=== PATIENT | female | born 1945 | race Caucasian/White ===

== ENCOUNTER → 2017-09-05 | Outpatient (CLI) | payer MEDICARE | LOC: M WHC 14:02 | DX: Z12.31 Encounter for screening mammogram for malignant neoplasm of breast (principal) | CPT/HCPCS: 77067 ==

== ENCOUNTER → 2018-09-06 | Outpatient (CLI) | payer MEDICARE ==
[~2018-09-06] MED LIST: CENTCHW3 PO; EZET10TA PO; HYDR25TAB PO; LEVO100T5 PO; PANT40TA3 PO; TAMO20TA8 PO; VENL37TA PO
--- NOTE | 2018-09-06 11:45 | REPMRS ---
Patient History The patient states she had a clinical breast exam in 08/2018. Patient is postmenopausal and has history of high-risk lesion on a previous biopsy at age 67. Family history of breast cancer at age 40 in maternal cousin, breast cancer at age 40 in maternal cousin. High risk lumpectomy of the left breast, April 18, 2013. High risk lumpectomy of the right breast, September 28, 2011. Took tamoxifen for 5 years. Digital Woman Screen Mammo: September 06, 2018 - Exam #: [id number] Bilateral CC and MLO view(s) were taken. Technologist: Bryanna Monae, Technologist Prior study comparison: September 05, 2017, digital woman screen mammo performed at [facility]. March 03, 2016, bilateral digital mammo screening bilat, performed at [facility]. January 20, 2015, digital mammo diagnostic bilateral, performed at [facility]. FINDINGS: There are scattered fibroglandular densities. There are stable nodular densities in the lateral aspect of each breast, unchanged. There has been no change in the appearance of the mammogram from the prior studies. There is a mild amount of scattered fibroglandular density which is fairly symmetric. There is no interval development of dominant mass, architectural distortion, or clustered microcalcification suggestive of malignancy. 3-D tomosynthesis shows no additional findings. Assessment: BI-RADS/ACR category 2 mammogram. Benign finding(s). Recommendation Routine screening mammogram of both breasts in 1 year (for women over age 40). This patient's Lifetime Breast Cancer RIsk is estimated at 4.7 %. This mammogram was interpreted with the aid of an FDA-approved computer-aided dectection system. Electronically Signed By: Guille Nguyen MD 09/06/18 [id number]
== END ==
LOC: M WHC 09:56
PROVIDERS: ATTEND Nurse Practitioner Family
DX: Z12.31 Encounter for screening mammogram for malignant neoplasm of breast (principal); Z78.0 Asymptomatic menopausal state; Z92.29 Personal history of other drug therapy

== ENCOUNTER → 2019-05-30 | Outpatient (REF) | payer MEDICARE ==
[~2019-05-30] MED LIST changes: -EZET10TA PO; +EZET10TA21 PO
== END ==
LOC: M LAB REF 17:03
PROVIDERS: ATTEND Orthopaedic Surgery Hand Surgery
DX: D48.1 Neoplasm of uncertain behavior of connective and other soft tissue (principal)

== ENCOUNTER → 2019-09-09 | Outpatient (CLI) | payer MEDICARE ==
--- NOTE | 2019-09-09 12:51 | REPMRS ---
Patient History The patient states she had a clinical breast exam in August 2019.Family history of breast cancer at age 40 in maternal cousin, breast cancer at age 40 in maternal cousin. High risk lumpectomy of the left breast, April 18, 2013. High risk lumpectomy of the right breast, September 28, 2011. Took tamoxifen for 5 years. Digital Woman Screen Mammo: September 09, 2019 - Exam #: [id number] Bilateral CC and MLO view(s) were taken. Technologist: Omayra Ness, Technologist Prior study comparison: September 06, 2018, bilateral digital woman screen mammo performed at [facility] [place]. September 05, 2017, digital woman screen mammo performed at [facility]. March 03, 2016, bilateral digital mammo screening bilat, performed at [facility]. FINDINGS: There are scattered fibroglandular densities. There is a moderate amount of residual fibroglandular tissue which is fairly symmetric. There is no interval development of dominant mass, architectural distortion, or grouped microcalcification typical of malignancy. There has been no change in the appearance of the mammogram from the prior studies. 3-D tomosynthesis shows no additional findings. Assessment: BI-RADS/ACR category 1 mammogram. Negative Mammogram. Recommendation Routine screening mammogram of both breasts in 1 year (for women over age 40). This patient's Lifetime Breast Cancer RIsk is estimated at 4.4 %. This mammogram was interpreted with the aid of an FDA-approved computer-aided dectection system. Electronically Signed By: Guille Nguyen MD 09/09/19 [id number]
== END ==
LOC: M WHC 10:15
PROVIDERS: ATTEND Nurse Practitioner Family
DX: Z12.31 Encounter for screening mammogram for malignant neoplasm of breast (principal); Z92.29 Personal history of other drug therapy

== ENCOUNTER → 2020-09-10 | Outpatient (CLI) | payer MEDICARE ==
[~2020-09-10] MED LIST changes: +PANT40TA29 PO; -PANT40TA3 PO
--- NOTE | 2020-09-10 12:16 | REPMRS ---
Patient History The patient states she had a clinical breast exam in August 2020. Family history of breast cancer at age 40 in maternal cousin, breast cancer at age 40 in maternal cousin. High risk lumpectomy of the left breast, April 18, 2013. High risk lumpectomy of the right breast, September 28, 2011. Took tamoxifen for 5 years. 3D TOMOSYNTHESIS WAS PERFORMED. The [facility] lifetime risk for breast cancer is 4.1%. Volpara breast density b. Digital Woman Screen Mammo: September 10, 2020 - Exam #: [id number] Bilateral CC and MLO view(s) were taken. Technologist: Charley Panchal, Technologist Prior study comparison: September 09, 2019, bilateral digital woman screen mammo performed at [facility]. September 06, 2018, bilateral digital woman screen mammo performed at [facility]. FINDINGS: The breast tissue is heterogeneously dense. This may lower the sensitivity of mammography. There has been no change in the appearance of the mammogram from the prior studies. There is a moderate amount of residual fibroglandular tissue which is fairly symmetric. There is no interval development of dominant mass, areas of architectural distortion, or clustered microcalcification typical of malignancy. Assessment: BI-RADS/ACR category 1 mammogram. Negative Mammogram. Recommendation Routine screening mammogram in 1 year (for women over age 40). This mammogram was interpreted with the aid of an FDA-approved computer-aided dectection system. Electronically Signed By: Zan Mccullough MD 09/10/20 [id number]
== END ==
LOC: M WHC 11:08
PROVIDERS: ATTEND Nurse Practitioner Family
DX: Z12.31 Encounter for screening mammogram for malignant neoplasm of breast (principal); Z86.018 Personal history of other benign neoplasm; Z92.29 Personal history of other drug therapy

== ENCOUNTER → 2021-05-14 | Outpatient (CLI) | payer MEDICARE ==
[~2021-05-14] MED LIST changes: +CLAR10CA3 PO; +EUTH125T PO; +HYDR-3490 PO; -HYDR25TAB PO
== END ==
LOC: M LABSMTC 09:02
PROVIDERS: ATTEND Anesthesiology
DX: Z01.818 Encounter for other preprocedural examination (principal); Z11.52 Encounter for screening for COVID-19

== ENCOUNTER 2021-05-19 10:29 | Day surgery (SDC) | payer MEDICARE ==
[~2021-05-19] VITALS: Ht 154.9 cm; Wt 88.5 kg
[~2021-05-19 10:29] MED LIST changes: +NS 1,000 ML IV ONE
[2021-05-19] MEDS ORDERED: propofoL 200 MG/20 ML VIAL As Ordered ONE (11:57)
[2021-05-19] MEDS ORDERED: LIDOCAINE 2% 100MG/5ML SDV (FOR ANES.) As Ordered ONE (11:57)
[2021-05-19] MEDS ORDERED: fentaNYL 100 MCG/2 ML INJECTION (J3010) As Ordered ONE (11:58)
--- NOTE | 2021-05-19 13:01 | ROOR ---
Patient Name: Miley Chapman Procedure Date: 05/19/2021 12:39 PM Date of : 1945 Age: 75 Room: [facility] Gender: Female Note Status: Finalized Procedure: Upper Endoscopy + Biopsies Indications: Heartburn, Failure to respond to medical treatment Providers: Trace Alicea MD Referring MD: Ramiro Haddad MD Requesting Provider: Medicines: Monitored Anesthesia Care Complications: No immediate complications. Procedure: Pre-Anesthesia Assessment: - The heart rate, respiratory rate, oxygen saturations, blood pressure, adequacy of pulmonary ventilation, and response to care were monitored throughout the procedure. The Endoscope was introduced through the mouth, and advanced to the second part of duodenum. The upper GI endoscopy was accomplished without difficulty. The patient tolerated the procedure well. Findings: The Z-line was regular and was found 30 cm from the incisors. Multiple biopsies were obtained with cold forceps for evaluation to rule out Hart's Esophagus randomly at the gastroesophageal junction. A large hiatal hernia was present. No other significant abnormalities were identified in a careful examination of the stomach. The exam of the duodenum was otherwise normal. Impression: - Z-line regular, 30 cm from the incisors. - Large hiatal hernia. - Multiple biopsies were obtained at the gastroesophageal junction. - The examination was otherwise normal. Recommendation: - Patient has a contact number available for emergencies. The signs and symptoms of potential delayed complications were discussed with the patient. Return to normal activities tomorrow. Written discharge instructions were provided to the patient. - High fiber diet. - Discharge patient to home. - Follow an antireflux regimen. - Continue present medications. - Await pathology results. - Telephone GI clinic for pathology results in 1 week. - Return to referring physician. - The findings and recommendations were discussed with the patient. Procedure Code(s): --- Professional --- 18009, Esophagogastroduodenoscopy, flexible, transoral; with biopsy, single or multiple Diagnosis Code(s): --- Professional --- K44.9, Diaphragmatic hernia without obstruction or gangrene R12, Heartburn CPT copyright 2019 [employer]. All rights reserved. The codes documented in this report are preliminary and upon gate mortiser operator review may be revised to meet current compliance requirements. Trace Alicea MD Trace Alicea MD 05/19/2021 1:00:44 PM Electronically signed by Trace Alicea MD Number of Addenda: 0 Note Initiated On: 05/19/2021 12:39 PM Estimated Blood Loss: Estimated blood loss: none.
[2021-05-19 13:44] VITALS: BP 175/84
== END 2021-05-19 13:45 | disposition home or self-care (01) ==
LOC: M OPP 10:29
PROVIDERS: ATTEND Internal Medicine Gastroenterology
DX: R12 Heartburn (principal); K22.10 Ulcer of esophagus without bleeding; K44.9 Diaphragmatic hernia without obstruction or gangrene; I10 Essential (primary) hypertension; E78.5 Hyperlipidemia, unspecified; E03.9 Hypothyroidism, unspecified; F41.9 Anxiety disorder, unspecified; F32.9 Major depressive disorder, single episode, unspecified; Z88.0 Allergy status to penicillin; Z88.8 Allergy status to other drugs, medicaments and biological substances; Z79.899 Other long term (current) drug therapy
CPT/HCPCS: 43239; 88305; J3010

== ENCOUNTER → 2021-11-04 | Outpatient (CLI) | payer MEDICARE ==
[~2021-11-04] MED LIST changes: -NS 1,000 ML IV ONE
== END ==
LOC: M WHC 11:16
PROVIDERS: ATTEND Family Medicine
DX: Z12.31 Encounter for screening mammogram for malignant neoplasm of breast (principal)

== ENCOUNTER → 2021-11-22 | Outpatient (CLI) | payer MEDICARE | LOC: M WHC 09:55 | PROVIDERS: ATTEND Family Medicine | DX: R92.8 Other abnormal and inconclusive findings on diagnostic imaging of breast (principal); N60.01 Solitary cyst of right breast | CPT/HCPCS: 76642; 77065; G0279 ==

== ENCOUNTER → 2022-01-06 | Outpatient (CLI) | payer MEDICARE | LOC: M LABSMTC 11:35 | PROVIDERS: ATTEND Anesthesiology | DX: Z01.818 Encounter for other preprocedural examination (principal); Z11.52 Encounter for screening for COVID-19 ==

== ENCOUNTER → 2022-01-07 | Outpatient (CLI) | payer MEDICARE ==
[~2022-01-07] MED LIST changes: +ULTR50TA8 PO
== END ==
LOC: M WUC 11:42
PROVIDERS: ATTEND Family Medicine
DX: Z01.818 Encounter for other preprocedural examination (principal)

== ENCOUNTER 2022-01-11 08:26 | Day surgery (SDC) | payer MEDICARE ==
[~2022-01-11] VITALS: Ht 157.5 cm; Wt 89.7 kg
[~2022-01-11 08:26] MED LIST changes: +CLINDAMYCIN 900 MG in IV 1 EA IV ONE; +HEPARIN SOD (PORCINE) 5000UNITS/ML 1ML VIAL/SYRINGE SQ ONE; +LIDOCAINE 2% 100MG/5ML SDV (FOR ANES.) As Ordered ONE; +LR 1,000 ML IV ONE; +MIDAZOLAM INJ 2MG/2ML VIAL (J2250 PER 1MG) As Ordered ONE; +ONDANSETRON 4MG/2ML VIAL As Ordered ONE; -ULTR50TA8 PO; +dexameTHASONE 4 MG/ML 1ML VIAL (J1100 PER 1MG) As Ordered ONE; +fentaNYL 100 MCG/2 ML INJECTION As Ordered ONE; +propofoL 200 MG/20 ML VIAL As Ordered ONE
[2022-01-11] MEDS ORDERED: LIDOCAINE 1% SDV 30ML VIAL As Ordered ONE (09:21)
[2022-01-11] MEDS ORDERED: BUPIVACAINE HCL 0.25% 30ML VIAL As Ordered ONE (09:21)
[2022-01-11] MEDS ORDERED: SCOPOLAMINE 1MG TRANSDERMAL PATCH TOP ONE (09:50)
[2022-01-11] MEDS ORDERED: SCOPOLAMINE 1MG TRANSDERMAL PATCH As Ordered ONE (10:05)
[2022-01-11] MEDS ORDERED: ePHEDrine SULFATE 25 MG/5 ML(5MG/ML) SYRINGE As Ordered ONE (10:17)
[2022-01-11] MEDS ORDERED: fentaNYL 100 MCG/2 ML INJECTION As Ordered ONE (11:18)
[2022-01-11] MEDS ORDERED: ULTR50TA8 PO (12:41)
[2022-01-11] MEDS ORDERED: LR 1,000 ML IV SCH (13:10)
[2022-01-11] MEDS ORDERED: ONDANSETRON 4MG/2ML VIAL IV PRN (13:10)
[2022-01-11] MEDS ORDERED: oxyCODONE 5MG TAB PO PRN (13:10)
[2022-01-11] MEDS ORDERED: fentaNYL 100 MCG/2 ML INJECTION IV PRN (13:10)
[2022-01-11 13:45] VITALS: BP 124/72
== END 2022-01-11 14:25 | disposition home or self-care (01) ==
LOC: M SDC 08:26
PROVIDERS: ATTEND Surgery
DX: D24.1 Benign neoplasm of right breast (principal); N60.91 Unspecified benign mammary dysplasia of right breast; N60.11 Diffuse cystic mastopathy of right breast; Z80.3 Family history of malignant neoplasm of breast; I10 Essential (primary) hypertension; E78.5 Hyperlipidemia, unspecified; R91.1 Solitary pulmonary nodule; K21.9 Gastro-esophageal reflux disease without esophagitis; E03.9 Hypothyroidism, unspecified; K44.9 Diaphragmatic hernia without obstruction or gangrene; K57.92 Diverticulitis of intestine, part unspecified, without perforation or abscess without bleeding; M47.9 Spondylosis, unspecified; N39.3 Stress incontinence (female) (male); F41.1 Generalized anxiety disorder; J30.9 Allergic rhinitis, unspecified; K59.09 Other constipation; M15.9 Polyosteoarthritis, unspecified; Z79.899 Other long term (current) drug therapy; Z79.890 Hormone replacement therapy; Z88.0 Allergy status to penicillin; Z88.8 Allergy status to other drugs, medicaments and biological substances
CPT/HCPCS: 19101; 36415; 76942; 86850; 86900; 86901; 88307; 88341; 88342; J1100; J1644; J2250; J2405; J3010

== ENCOUNTER → 2022-06-28 | Outpatient (REF) | payer MEDICARE ==
[~2022-06-28] MED LIST changes: -CLINDAMYCIN 900 MG in IV 1 EA IV ONE; -HEPARIN SOD (PORCINE) 5000UNITS/ML 1ML VIAL/SYRINGE SQ ONE; -LIDOCAINE 2% 100MG/5ML SDV (FOR ANES.) As Ordered ONE; -LR 1,000 ML IV ONE; -MIDAZOLAM INJ 2MG/2ML VIAL (J2250 PER 1MG) As Ordered ONE; -ONDANSETRON 4MG/2ML VIAL As Ordered ONE; +ULTR50TA8 PO; -dexameTHASONE 4 MG/ML 1ML VIAL (J1100 PER 1MG) As Ordered ONE; -fentaNYL 100 MCG/2 ML INJECTION As Ordered ONE; -propofoL 200 MG/20 ML VIAL As Ordered ONE
== END ==
LOC: M LAB REF 14:02
PROVIDERS: ATTEND Family Medicine
DX: E83.52 Hypercalcemia (principal)

== ENCOUNTER → 2022-11-07 | Outpatient (CLI) | payer MEDICARE | LOC: M WHC 10:22 | PROVIDERS: ATTEND Surgery | DX: Z12.31 Encounter for screening mammogram for malignant neoplasm of breast (principal); N60.91 Unspecified benign mammary dysplasia of right breast ==

== ENCOUNTER → 2022-12-23 | Outpatient (REF) | payer MEDICARE | LOC: M LAB REF 12:28 | PROVIDERS: ATTEND Family Medicine | DX: E83.52 Hypercalcemia (principal) ==

== ENCOUNTER → 2023-05-03 | Outpatient (REF) | payer MEDICARE | LOC: M LAB REF 16:33 | PROVIDERS: ATTEND Family Medicine | DX: E83.52 Hypercalcemia (principal) ==

== ENCOUNTER → 2023-08-31 | Outpatient (REF) | payer MEDICARE ==
[2023-08-31 13:47] LABS: IONIZED CALCIUM 5.3 MG/DL (4.5-5.3)
[2023-08-31 14:15] LABS: PTH INTACT 163.9 PG/ML (18.5-88.0)
== END ==
LOC: M LAB REF 13:23
PROVIDERS: ATTEND Family Medicine
DX: E83.52 Hypercalcemia (principal)

== ENCOUNTER → 2023-09-28 | Outpatient (CLI) | payer MEDICARE ==
[2023-09-28 17:49] LABS: ALBUMIN 3.6 G/DL (3.2-5.2); ALKALINE PHOSPHATASE 91 U/L (46-116); ALT/SGPT 22 U/L (7.0-40); AST/SGOT 13 U/L (<34); BILIRUBIN,TOTAL 0.7 MG/DL (0.3-1.2); BLOOD UREA NITROGEN 12 MG/DL (9-23); CALCIUM LEVEL 10.4 MG/DL (8.3-10.6); CARBON DIOXIDE LEVEL 28 MMOL/L (20-31); CHLORIDE LEVEL 107 MMOL/L (98-107); CREATININE FOR GFR 0.74 MG/DL (0.55-1.30); GLOMERULAR FILTRATION RATE > 60.0 (>39); GLUCOSE, FASTING 104 MG/DL (74-106); POTASSIUM SERUM 3.6 MMOL/L (3.5-5.1); PTH INTACT 165.9 PG/ML (18.5-88.0); SODIUM LEVEL 138 MMOL/L (136-145); TOTAL PROTEIN 6.6 G/DL (5.7-8.2)
[2023-09-28 17:50] LABS: THYROID STIMULATING HORMONE 0.205 uIU/ML (0.55-4.78); THYROXINE (T4) 15.4 UG/DL (4.5-10.9)
[2023-09-28 17:51] LABS: TOTAL 25(OH) VITAMIN D 37.4 NG/ML (20.0-100.0)
[2023-09-28 17:54] LABS: FREE THYROXINE INDEX 7.9 % (1.3-4.8); T UPTAKE 51.2 % (22.5-37.0)
== END ==
LOC: M PLALAB 11:58
PROVIDERS: ATTEND Orthopaedic Surgery
DX: M85.811 Other specified disorders of bone density and structure, right shoulder (principal)

== ENCOUNTER → 2023-10-13 | Outpatient (CLI) | payer MEDICARE | LOC: M WHC 09:33 | PROVIDERS: ATTEND Orthopaedic Surgery | DX: M85.811 Other specified disorders of bone density and structure, right shoulder (principal); M85.851 Other specified disorders of bone density and structure, right thigh; M85.852 Other specified disorders of bone density and structure, left thigh ==

== ENCOUNTER → 2023-11-09 | Outpatient (CLI) | payer MEDICARE | LOC: M WHC 10:18 | PROVIDERS: ATTEND Nurse Practitioner Women's Health | DX: Z12.31 Encounter for screening mammogram for malignant neoplasm of breast (principal) ==

== ENCOUNTER → 2023-11-20 | Outpatient (REF) | payer MEDICARE | LOC: M LAB REF 11:19 | PROVIDERS: ATTEND Family Medicine | DX: E83.52 Hypercalcemia (principal) ==

== ENCOUNTER → 2024-02-13 | Outpatient (REF) | payer MEDICARE | LOC: M LAB REF 11:18 | PROVIDERS: ATTEND Family Medicine | DX: E83.52 Hypercalcemia (principal) ==

== ENCOUNTER 2024-03-18 16:03 | Inpatient (IN) | payer MEDICARE ==
[~2024-03-18] VITALS: Ht 154.9 cm; Wt 90.7 kg
[2024-03-18 17:26] LABS: BASO % 0.1 % (0.0-1.0); EOS % 0.2 % (0.0-3.0); HEMATOCRIT 41.7 % (36.0-47.0); HEMOGLOBIN 14.2 g/dl (12.0-15.5); LYMPH # 1.5 10^3/uL (1.5-5.0); LYMPH % 14.9 % (24.0-44.0); MEAN CORPUSCULAR HEMOGLOBIN 29.8 pg (27.0-33.0); MEAN CORPUSCULAR HGB CONC 34.1 g/dl (32.0-36.5); MEAN CORPUSCULAR VOLUME 87.4 fl (80.0-96.0); MONO # 0.7 10^3/uL (0.0-0.8); MONO % 6.7 % (2.0-8.0); NEUTROPHILS # 8.1 10^3/uL (1.5-8.5); NEUTROPHILS % 77.7 % (36.0-66.0); PLATELET COUNT, AUTOMATED 278 10^3/uL (150-450); RED BLOOD COUNT 4.77 10^6/uL (4.00-5.40); WHITE BLOOD COUNT 10.4 10^3/uL (4.0-10.0)
[2024-03-18 17:39] LABS: LIPASE 45 U/L (12-53)
[2024-03-18 17:41] LABS: ALKALINE PHOSPHATASE 102 U/L (46-116); ALT/SGPT 24 U/L (7.0-40); AST/SGOT 14 U/L (<34); BILIRUBIN,DIRECT 0.3 MG/DL (<0.4); BILIRUBIN,TOTAL 1.1 MG/DL (0.3-1.2); BLOOD UREA NITROGEN 11 MG/DL (9-23); CALCIUM LEVEL 11.1 MG/DL (8.3-10.6); CARBON DIOXIDE LEVEL 26 MMOL/L (20-31); CHLORIDE LEVEL 99 MMOL/L (98-107); CREATININE FOR GFR 0.64 MG/DL (0.55-1.30); GLOMERULAR FILTRATION RATE > 60.0 (>39); GLUCOSE, FASTING 111 MG/DL (74-106); POTASSIUM SERUM 3.3 MMOL/L (3.5-5.1); SODIUM LEVEL 134 MMOL/L (136-145); TOTAL PROTEIN 6.9 G/DL (5.7-8.2)
[2024-03-18] MEDS ORDERED: ISOVUE-370 76% 100ML VIAL As Ordered ONE (20:16)
[2024-03-18] MEDS: MORPHINE 2 MG/ML 1ML VIAL IV ONE (20:36)
[2024-03-18 21:00] LABS: CK-MB VALUE MASS 1.5 NG/ML (<3.6); MB/CK RELATIVE INDEX 1.41 (< OR =4)
[2024-03-18 21:59] LABS: CK-MB VALUE MASS 1.5 NG/ML (<3.6)
[2024-03-18 22:00] LABS: MB/CK RELATIVE INDEX 1.37 (< OR =4)
[2024-03-18] MEDS: cefTRIAXone SOD 1 GM in D5W MINI-BAG PLUS 50 ML IV ONE (23:07)
[2024-03-18 23:42] LABS: CK-MB VALUE MASS 1.7 NG/ML (<3.6)
[2024-03-18 23:45] LABS: MB/CK RELATIVE INDEX 1.58 (< OR =4)
[2024-03-18] MEDS ORDERED: HOME MED LIST COMPLETE! XX SCH (23:45)
[2024-03-18] MEDS ORDERED: VITA180C2 PO (23:45)
[2024-03-18] MEDS ORDERED: VITA100093 PO (23:45)
[2024-03-18] MEDS: KCL 10MEQ/100ML SWI (KRUN) 10 MEQ in IV 1 EA IV ONE (23:48)
[2024-03-19] MEDS ORDERED: ACETAMINOPHEN TAB 650MG DOSE (2X325MG) PO PRN (00:20)
[2024-03-19] MEDS: NS 1,000 ML IV SCH (00:48)
[2024-03-19] MEDS: cefTRIAXone SOD 1 GM in D5W MINI-BAG PLUS 50 ML IV ONE (01:09)
[2024-03-19 02:31] VITALS: BP 160/88; TEMP 98.4; O2SAT 97
[2024-03-19] MEDS: ONDANSETRON 4MG 2ML VIAL IV PRN (02:47)
[2024-03-19 03:00] LABS: INR 1.12; PARTIAL THROMBOPLASTIN TIME 26.7 SECONDS (24.8-34.2)
[2024-03-19] MEDS: metroNIDAZOLE 500 MG in IV 1 EA IV SCH (03:01)
[2024-03-19] MEDS: LEVOTHYROXINE 125MCG TABLET (0.125MG) PO SCH (05:06)
[2024-03-19] MEDS: PANTOPRAZOLE 40MG VIAL IV SCH (08:30)
[2024-03-19] MEDS: DOCUSATE SODIUM 100MG CAPSULE PO SCH (08:31)
[2024-03-19 12:00] VITALS: BP 135/66; TEMP 97.7; O2SAT 96
[2024-03-19] MEDS: MORPHINE 2 MG/ML 1ML VIAL IV PRN ×2 (12:33→17:25)
[2024-03-19 12:37] LABS: BASO % 0.1 % (0.0-1.0); EOS % 0.3 % (0.0-3.0); HEMATOCRIT 40.5 % (36.0-47.0); HEMOGLOBIN 13.7 g/dl (12.0-15.5); LYMPH # 1.2 10^3/uL (1.5-5.0); LYMPH % 12.3 % (24.0-44.0); MEAN CORPUSCULAR HEMOGLOBIN 29.9 pg (27.0-33.0); MEAN CORPUSCULAR HGB CONC 33.8 g/dl (32.0-36.5); MEAN CORPUSCULAR VOLUME 88.4 fl (80.0-96.0); MONO # 0.9 10^3/uL (0.0-0.8); MONO % 9.6 % (2.0-8.0); NEUTROPHILS # 7.6 10^3/uL (1.5-8.5); NEUTROPHILS % 77.4 % (36.0-66.0); PLATELET COUNT, AUTOMATED 251 10^3/uL (150-450); RED BLOOD COUNT 4.58 10^6/uL (4.00-5.40); WHITE BLOOD COUNT 9.8 10^3/uL (4.0-10.0)
[2024-03-19 13:09] LABS: ALBUMIN 3.4 G/DL (3.2-5.2); ALKALINE PHOSPHATASE 116 U/L (46-116); ALT/SGPT 60 U/L (7.0-40); AST/SGOT 45 U/L (<34); BILIRUBIN,TOTAL 1.3 MG/DL (0.3-1.2); BLOOD UREA NITROGEN 7 MG/DL (9-23); CALCIUM LEVEL 10.7 MG/DL (8.3-10.6); CARBON DIOXIDE LEVEL 27 MMOL/L (20-31); CHLORIDE LEVEL 105 MMOL/L (98-107); CREATININE FOR GFR 0.62 MG/DL (0.55-1.30); GLOMERULAR FILTRATION RATE > 60.0 (>39); GLUCOSE, FASTING 106 MG/DL (74-106); POTASSIUM SERUM 3.3 MMOL/L (3.5-5.1); SODIUM LEVEL 139 MMOL/L (136-145); TOTAL PROTEIN 6.3 G/DL (5.7-8.2)
[2024-03-19 20:00] VITALS: BP 121/74; TEMP 97.5; O2SAT 92
[2024-03-19] MEDS: cefTRIAXone SOD 2 GM in D5W MINI-BAG PLUS 50 ML IV SCH (23:26)
[2024-03-20 04:30] VITALS: BP 131/76; TEMP 97.5; O2SAT 90
[2024-03-20 07:01] LABS: HEMATOCRIT 37.1 % (36.0-47.0); HEMOGLOBIN 12.5 g/dl (12.0-15.5); MEAN CORPUSCULAR HEMOGLOBIN 30.1 pg (27.0-33.0); MEAN CORPUSCULAR HGB CONC 33.7 g/dl (32.0-36.5); MEAN CORPUSCULAR VOLUME 89.4 fl (80.0-96.0); PLATELET COUNT, AUTOMATED 215 10^3/uL (150-450); RED BLOOD COUNT 4.15 10^6/uL (4.00-5.40); WHITE BLOOD COUNT 7.3 10^3/uL (4.0-10.0)
[2024-03-20 07:26] LABS: ALBUMIN 2.8 G/DL (3.2-5.2); ALKALINE PHOSPHATASE 105 U/L (46-116); ALT/SGPT 46 U/L (7.0-40); AST/SGOT 30 U/L (<34); BILIRUBIN,TOTAL 0.9 MG/DL (0.3-1.2); BLOOD UREA NITROGEN 7 MG/DL (9-23); CALCIUM LEVEL 9.7 MG/DL (8.3-10.6); CARBON DIOXIDE LEVEL 26 MMOL/L (20-31); CHLORIDE LEVEL 108 MMOL/L (98-107); GLOMERULAR FILTRATION RATE > 60.0 (>39); GLUCOSE, FASTING 104 MG/DL (74-106); MAGNESIUM LEVEL 1.7 MG/DL (1.8-2.4); POTASSIUM SERUM 3.2 MMOL/L (3.5-5.1); SODIUM LEVEL 140 MMOL/L (136-145); TOTAL PROTEIN 5.4 G/DL (5.7-8.2)
[2024-03-20] MEDS: POTASSIUM CHLORIDE 10MEQ SR TABLET PO ONE (10:29)
[2024-03-20 12:27] VITALS: BP 125/74; TEMP 98.1; O2SAT 94
[2024-03-20 20:31] VITALS: BP 155/80; TEMP 98.1; O2SAT 93
[2024-03-21] VITALS (9 sets, daily range): BP systolic 118–150; BP diastolic 66–80; TEMP 97.3–98.4; O2SAT 91–95
[2024-03-21] MEDS ORDERED: fentaNYL 100 MCG/2 ML INJECTION As Ordered ONE (07:13)
[2024-03-21] MEDS ORDERED: LIDOCAINE 2% 100MG/5ML SDV (FOR ANES.) As Ordered ONE (07:13)
[2024-03-21] MEDS ORDERED: MIDAZOLAM INJ 2MG/2ML VIAL As Ordered ONE (07:13)
[2024-03-21] MEDS ORDERED: ROCURONIUM BROMIDE 50MG/5ML VIAL As Ordered ONE (07:13)
[2024-03-21] MEDS ORDERED: ONDANSETRON 4MG 2ML VIAL As Ordered ONE (07:13)
[2024-03-21] MEDS ORDERED: propofoL 200 MG/20 ML VIAL As Ordered ONE (07:13)
[2024-03-21] MEDS ORDERED: KETOROLAC 60MG 2ML VIAL As Ordered ONE (07:13)
[2024-03-21] MEDS ORDERED: SUGAMMADEX SODIUM 500 MG/5 ML VIAL (BRIDION) As Ordered ONE (07:17)
[2024-03-21] MEDS: INDOCYANINE GREEN 25MG VIAL (IC-GREEN) As Ordered ONE (07:40)
[2024-03-21] MEDS ORDERED: LABETALOL 100MG/20ML VIAL As Ordered ONE (08:14)
[2024-03-21] MEDS ORDERED: PERCOCET 5MG/325MG TAB PO PRN ×2 (09:10)
[2024-03-21] MEDS: LIDOCAINE 1% SDV 30ML VIAL As Ordered ONE (09:15)
[2024-03-21] MEDS ORDERED: fentaNYL 100 MCG/2 ML INJECTION IV PRN (09:20)
[2024-03-21] MEDS: ONDANSETRON 4MG 2ML VIAL IV PRN (09:39)
[2024-03-21] MEDS: MORPHINE 2 MG/ML 1ML VIAL IV PRN (09:40)
[2024-03-21] MEDS: oxyCODONE 5MG TAB PO PRN (10:08)
[2024-03-21] MEDS: KETOROLAC 30 MG/ML 1ML VIAL IV SCH (16:43)
[2024-03-22 01:03] VITALS: BP 127/72; TEMP 97.9; O2SAT 95
[2024-03-22 05:01] VITALS: BP 141/80; TEMP 97.8; O2SAT 94
[2024-03-22 06:43] LABS: BASO % 0.2 % (0.0-1.0); EOS % 0.5 % (0.0-3.0); HEMATOCRIT 33.9 % (36.0-47.0); HEMOGLOBIN 11.2 g/dl (12.0-15.5); LYMPH # 1.2 10^3/uL (1.5-5.0); LYMPH % 19.9 % (24.0-44.0); MEAN CORPUSCULAR HEMOGLOBIN 29.6 pg (27.0-33.0); MEAN CORPUSCULAR VOLUME 89.7 fl (80.0-96.0); MONO # 0.4 10^3/uL (0.0-0.8); MONO % 6.9 % (2.0-8.0); NEUTROPHILS # 4.2 10^3/uL (1.5-8.5); NEUTROPHILS % 72.2 % (36.0-66.0); PLATELET COUNT, AUTOMATED 206 10^3/uL (150-450); RED BLOOD COUNT 3.78 10^6/uL (4.00-5.40); WHITE BLOOD COUNT 5.8 10^3/uL (4.0-10.0)
[2024-03-22 07:11] LABS: ALBUMIN 2.5 G/DL (3.2-5.2); ALKALINE PHOSPHATASE 114 U/L (46-116); ALT/SGPT 42 U/L (7.0-40); AST/SGOT 20 U/L (<34); BILIRUBIN,TOTAL 0.5 MG/DL (0.3-1.2); BLOOD UREA NITROGEN 8 MG/DL (9-23); CALCIUM LEVEL 10.1 MG/DL (8.3-10.6); CARBON DIOXIDE LEVEL 24 MMOL/L (20-31); CHLORIDE LEVEL 112 MMOL/L (98-107); CREATININE FOR GFR 0.58 MG/DL (0.55-1.30); GLOMERULAR FILTRATION RATE > 60.0 (>39); GLUCOSE, FASTING 106 MG/DL (74-106); POTASSIUM SERUM 3.7 MMOL/L (3.5-5.1); SODIUM LEVEL 142 MMOL/L (136-145); TOTAL PROTEIN 5.1 G/DL (5.7-8.2)
[2024-03-22] MEDS ORDERED: SENO8.6T10 PO (07:40)
[2024-03-22] MEDS ORDERED: PERC5TAB12 PO (07:40)
[2024-03-22] MEDS ORDERED: DIGE1CAP7 PO (07:40)
[2024-03-22] MEDS ORDERED: CIPR-249 PO (07:40)
[2024-03-22] MEDS ORDERED: METR-265 PO (07:40)
[2024-03-22 08:30] VITALS: BP 140/81; TEMP 98.1; O2SAT 93
[2024-03-22] MEDS: LACTOBACILLUS ACIDOPHILUS CAP (BACID) PO SCH (09:13)
[2024-03-22] MEDS: FUROSEMIDE 40MG/4ML VIAL IV ONE (09:13)
[2024-03-22 09:17] VITALS: BP 143/79
[2024-03-22] MEDS: CIPROFLOXACIN 500MG TABLET PO SCH (09:52)
[2024-03-22 13:05] VITALS: BP 142/80; TEMP 97.9; O2SAT 92
[2024-03-22] MEDS: metroNIDAZOLE (FLAGYL) 500MG TABLET PO SCH (14:01)
== END 2024-03-22 16:00 | disposition home or self-care (01) | DRG 418 ==
LOC: M ED 16:03 → M ED INP 23:32 → M MS5PR 03-19 02:17
PROVIDERS: ADMIT Preventive Medicine Undersea and Hyperbaric Medicine; ATTEND General Practice
PROC: 8E0W4CZ Robotic Assisted Procedure of Trunk Region, Percutaneous Endoscopic Approach (ICD-10-PCS; 2024-03-21)
PROC: BF53200 Other Imaging of Gallbladder and Bile Ducts using Fluorescing Agent, Indocyanine Green Dye, Intraoperative (ICD-10-PCS; 2024-03-21)
PROC: 0FT44ZZ Resection of Gallbladder, Percutaneous Endoscopic Approach (ICD-10-PCS; principal; 2024-03-21 07:30)
DX: K80.00 Calculus of gallbladder with acute cholecystitis without obstruction (principal); K82.1 Hydrops of gallbladder; I10 Essential (primary) hypertension; E78.5 Hyperlipidemia, unspecified; K44.9 Diaphragmatic hernia without obstruction or gangrene; K76.0 Fatty (change of) liver, not elsewhere classified; Z88.8 Allergy status to other drugs, medicaments and biological substances; Z79.890 Hormone replacement therapy; Z79.899 Other long term (current) drug therapy; K57.90 Diverticulosis of intestine, part unspecified, without perforation or abscess without bleeding; M19.90 Unspecified osteoarthritis, unspecified site; K21.9 Gastro-esophageal reflux disease without esophagitis; I25.10 Atherosclerotic heart disease of native coronary artery without angina pectoris; F32.A Depression, unspecified; F41.9 Anxiety disorder, unspecified; E83.52 Hypercalcemia; R91.1 Solitary pulmonary nodule; E03.9 Hypothyroidism, unspecified; Z88.0 Allergy status to penicillin

== ENCOUNTER → 2024-03-28 | Outpatient (REF) | payer MEDICARE ==
[~2024-03-28] MED LIST changes: +CIPR-249 PO; +DIGE1CAP7 PO; +METR-265 PO; +PERC5TAB12 PO; +SENO8.6T10 PO; +VITA100093 PO; +VITA180C2 PO
== END ==
LOC: M LAB REF 12:36
PROVIDERS: ATTEND Nurse Practitioner Family
DX: E83.52 Hypercalcemia (principal)

== ENCOUNTER → 2024-06-10 | Outpatient (REF) | payer MEDICARE ==
[2024-06-10 12:42] LABS: IONIZED CALCIUM 6.1 MG/DL (4.5-5.3)
[2024-06-10 13:19] LABS: PTH INTACT 204.2 PG/ML (18.5-88.0)
== END ==
LOC: M LAB REF 12:03
PROVIDERS: ATTEND Family Medicine
DX: E83.52 Hypercalcemia (principal)

== ENCOUNTER → 2024-07-08 | Outpatient (CLI) | payer MEDICARE ==
[~2024-07-08] MED LIST changes: +ISOVUE-370 76% 100ML VIAL As Ordered ONE
== END ==
LOC: M RAD 09:15
PROVIDERS: ATTEND Family Medicine
DX: E21.0 Primary hyperparathyroidism (principal); R91.1 Solitary pulmonary nodule
CPT/HCPCS: 71260; 78070; 78803; A9500; Q9967

== ENCOUNTER → 2024-09-18 | Outpatient (REF) | payer MEDICARE ==
[~2024-09-18] MED LIST changes: -ISOVUE-370 76% 100ML VIAL As Ordered ONE
[2024-09-18 13:36] LABS: IONIZED CALCIUM 5.5 MG/DL (4.5-5.3)
== END ==
LOC: M LAB REF 13:03
PROVIDERS: ATTEND Family Medicine
DX: E21.0 Primary hyperparathyroidism (principal); E03.9 Hypothyroidism, unspecified; E78.5 Hyperlipidemia, unspecified

== ENCOUNTER → 2024-11-11 | Outpatient (CLI) | payer MEDICARE | LOC: M WHC 09:41 | PROVIDERS: ATTEND Family Medicine | DX: Z12.31 Encounter for screening mammogram for malignant neoplasm of breast (principal) ==

== ENCOUNTER → 2024-12-11 | Outpatient (REF) | payer MEDICARE | LOC: M LAB REF 14:44 | PROVIDERS: ATTEND Family Medicine | DX: E21.0 Primary hyperparathyroidism (principal); E03.9 Hypothyroidism, unspecified ==

== ENCOUNTER 2025-01-08 11:13 | Day surgery (SDC) | payer MEDICARE ==
[~2025-01-08] VITALS: Ht 154.9 cm; Wt 72.2 kg
[~2025-01-08 11:13] MED LIST changes: +DOCU100C17 PO; +FLON1SPR; +LORA-243 PO; +OMEG10002 PO; +PROBCAP14 PO; +SYNT88TA2 PO
[2025-01-08] MEDS ORDERED: LIDOCAINE 2% JELLY 6ML SYRINGE As Ordered ONE (12:19)
[2025-01-08] MEDS ORDERED: LIDOCAINE 2% 100MG/5ML SDV (FOR ANES.) As Ordered ONE (12:19)
[2025-01-08] MEDS ORDERED: propofoL 200 MG/20 ML VIAL As Ordered ONE (12:20)
[2025-01-08 13:10] VITALS: TEMP 98.3
[2025-01-08 14:10] VITALS: BP 148/78; O2SAT 96
== END 2025-01-08 14:24 | disposition home or self-care (01) ==
LOC: M OPP 11:13
PROVIDERS: ATTEND Surgery
DX: Z12.11 Encounter for screening for malignant neoplasm of colon (principal); K64.3 Fourth degree hemorrhoids; K57.30 Diverticulosis of large intestine without perforation or abscess without bleeding; K64.4 Residual hemorrhoidal skin tags; K21.9 Gastro-esophageal reflux disease without esophagitis; Z86.0100 Personal history of colon polyps, unspecified; E03.9 Hypothyroidism, unspecified; E78.00 Pure hypercholesterolemia, unspecified; N39.3 Stress incontinence (female) (male); Z79.899 Other long term (current) drug therapy; Z79.890 Hormone replacement therapy; Z90.710 Acquired absence of both cervix and uterus; Z87.19 Personal history of other diseases of the digestive system; Z88.0 Allergy status to penicillin; Z88.8 Allergy status to other drugs, medicaments and biological substances
CPT/HCPCS: 46930; G0105